=== PATIENT | male | born 1945 | race Caucasian/White ===

== ENCOUNTER 2021-02-24 14:02 | Inpatient (IN) | payer OTHER, MEDICARE ==
[~2021-02-24] VITALS: Ht 177.8 cm; Wt 57.2 kg
[2021-02-24] VITALS (7 sets, daily range): BP systolic 139–175; BP diastolic 58–94
[2021-02-24 15:19] LABS: BASOPHILS % (AUTO) 0.9 % (0-1); EOSINOPHILS % (AUTO) 0.7 % (0-6); LYMPHOCYTES # (AUTO) 0.8 X10'3 (1.1-4.8); LYMPHOCYTES % (AUTO) 14.3 % (21-51); MEAN CORPUSCULAR HEMOGLOBIN 32.3 PG (27.0-31.0); MEAN CORPUSCULAR HGB CONC 34.4 g/dL (33.0-36.5); MONOCYTES # (AUTO) 0.8 X10'3 (0-0.9); MONOCYTES % (AUTO) 13.1 % (2-12); NEUTROPHILS # (AUTO) 4.1 X10'3 (1.8-7.7); PLATELET COUNT 186 X10'3 (140-440); RED CELL DISTRIBUTION WIDTH 15.9 % (11.5-14.5); WHITE BLOOD COUNT 5.8 X10'3 (4.5-11.0)
[2021-02-24 15:25] LABS: HEMATOCRIT 17.9 % (42.0-52.0); HEMOGLOBIN 6.1 g/dl (14.0-17.9)
[2021-02-24 15:29] LABS: ALANINE AMINOTRANSFERASE 17 U/L (12-78); ALBUMIN 3.1 G/DL (3.4-5.0); ALBUMIN/GLOBULIN RATIO 0.8 (1.1-1.5); ALKALINE PHOSPHATASE 164 IU/L (46-116); ANION GAP 13 (8-16); ASPARTATE AMINO TRANSFERASE 23 U/L (10-37); BILIRUBIN,TOTAL 0.3 MG/DL (0.1-1.0); BLOOD UREA NITROGEN 53 MG/DL (7-18); BUN/CREATININE RATIO 8.2 (5.4-32.0); CALCIUM 8.4 MG/DL (8.5-10.1); CHLORIDE 100 MMOL/L (99-107); CREATININE 6.48 MG/DL (0.60-1.10); GLUCOSE 103 MG/DL (70-104); POTASSIUM 3.9 MMOL/L (3.5-5.1); SODIUM 139 MMOL/L (135-145); TOTAL CARBON DIOXIDE 26.1 MMOL/L (24-32); TOTAL PROTEIN 6.8 G/DL (6.4-8.2); eGFR 8 ML/MIN
[2021-02-24] MEDS ORDERED: METO-539 PO (17:10)
[2021-02-24] MEDS ORDERED: BUPR100T5 PO (17:10)
[2021-02-24] MEDS ORDERED: ASPI81TA47 PO (17:10)
[2021-02-24] MEDS ORDERED: CLOP75TA15 PO (17:10)
[2021-02-24] MEDS ORDERED: AMLO10TA48 PO (17:10)
[2021-02-24] MEDS ORDERED: TRAZ-251 PO (17:10)
[2021-02-24] MEDS ORDERED: ATOR40TA71 PO (17:10)
[2021-02-24] MEDS ORDERED: potassium CL 10mEq/100ml bag 100 ML IV PRN (17:35)
[2021-02-24] MEDS ORDERED: ondansetron/PF 4mg/2ml inj IV PRN (17:35)
[2021-02-24] MEDS ORDERED: acetaminophen 325mg tablet PO PRN ×2 (17:35)
[2021-02-24] MEDS ORDERED: potassium Cl 20 mEq SR tablet PO PRN ×2 (17:35)
[2021-02-24] MEDS ORDERED: normal saline 1000ml 1,000 ML IV SCH (17:35)
[2021-02-24] MEDS ORDERED: magnesium Cl slow-release 64mg tablet PO PRN (17:35)
[2021-02-24] MEDS ORDERED: magnesium 2GM in 50ml NS 50 ML IV PRN (17:35)
[2021-02-24] MEDS ORDERED: magnesium 4gm in 100ml NS 100 ML IV PRN (17:35)
--- NOTE | 2021-02-24 19:29 | NUR ---
assumed care of patient 1829. 1929 prbc unit completed. will contact CT for scan. patietn ate dinner and denies c/o pain. aox4 rendon
[2021-02-24] MEDS: K and/or MAG REPLACEMENT MC SCH (20:08)
[2021-02-24] MEDS: buPROPion SR 100mg tab PO SCH (20:08)
[2021-02-24] MEDS: pantoprazole 40MG/NS 100ML BAG 100 ML IV SCH (20:13)
[2021-02-24] MEDS ORDERED: temazepam 15mg capsule PO PRN (21:00)
[2021-02-24] MEDS: traZODone 50mg tablet PO SCH (21:05)
--- NOTE | 2021-02-24 23:00 | NUR ---
Report given by Clarence from ED at the 3rd floor nurses station
--- NOTE | 2021-02-24 23:15 | NUR ---
Mr Gallagher is being admitted to room 3027B. He has been assessed as indicated. He denied pain. He states he came to the ED after receiving a call from his HD physician stating there was a need for a blood transfusion related to low HH. Upon arrival HH was noted to be 6.1 and 17.9. He had AAA repair on 02/01/21. during this procedure he also had stent to the R kidney placed. He also states that he has limited renal function to the Left kidney also. Mr Gallagher contributes his renal failure to IV contrast dye. He started HD in the hospital. 02/23/21 was his second HD session in the community. He goes to [facility] here in [place] on [facility] [phone]. He lives [place] in [facility]. There are no open sessions in the HD center closer to his home. He uses a Right chest port for HD access. His routine HD days are TTS. His and sister in law are staying in a near by [place]. She can be reached at [phone] Mr Gallagher is very concerned with being DC. He has HD at 1330 Feb He is presently resting quietly.
[2021-02-25] VITALS (12 sets, daily range): BP systolic 124–163; BP diastolic 62–98
[2021-02-25] MEDS: pantoprazole 40MG/NS 100ML BAG 100 ML IV SCH ×5 (01:54→20:27)
--- NOTE | 2021-02-25 06:18 | NUR ---
Handoff has been given to Varsha SHEA
[2021-02-25 07:08] LABS: BASOPHILS # (AUTO) 0.1 X10'3 (0-0.2); BASOPHILS % (AUTO) 1.1 % (0-1); EOSINOPHILS # (AUTO) 0.1 X10'3 (0-0.9); EOSINOPHILS % (AUTO) 1.7 % (0-6); HEMATOCRIT 22.7 % (42.0-52.0); HEMOGLOBIN 7.9 g/dl (14.0-17.9); LYMPHOCYTES # (AUTO) 0.8 X10'3 (1.1-4.8); LYMPHOCYTES % (AUTO) 17.5 % (21-51); MEAN CORPUSCULAR HEMOGLOBIN 31.2 PG (27.0-31.0); MEAN CORPUSCULAR HGB CONC 34.8 g/dL (33.0-36.5); MEAN CORPUSCULAR VOLUME 89.7 FL (78-98); MEAN PLATELET VOLUME 6.9 FL (7.4-10.4); MONOCYTES # (AUTO) 0.6 X10'3 (0-0.9); MONOCYTES % (AUTO) 13.3 % (2-12); NEUTROPHILS # (AUTO) 3.1 X10'3 (1.8-7.7); NEUTROPHILS % (AUTO) 66.4 % (42-75); PLATELET COUNT 140 X10'3 (140-440); RED BLOOD COUNT 2.53 X10'6 (4.70-6.10); RED CELL DISTRIBUTION WIDTH 17.9 % (11.5-14.5); WHITE BLOOD COUNT 4.7 X10'3 (4.5-11.0)
[2021-02-25] MEDS: metoprolol succinate 25mg (24-HOUR) SR. Tablet PO SCH (07:08)
[2021-02-25] MEDS: amLODIPine 5mg tablet PO SCH (07:09)
[2021-02-25] MEDS: atorvastatin 20mg tablet PO SCH (07:10)
[2021-02-25] MEDS: buPROPion SR 100mg tab PO SCH ×2 (07:11→20:14)
[2021-02-25 07:26] LABS: ALANINE AMINOTRANSFERASE 13 U/L (12-78); ALBUMIN 2.8 G/DL (3.4-5.0); ALBUMIN/GLOBULIN RATIO 0.8 (1.1-1.5); ALKALINE PHOSPHATASE 144 IU/L (46-116); ANION GAP 11 (8-16); ASPARTATE AMINO TRANSFERASE 22 U/L (10-37); BILIRUBIN,TOTAL 0.5 MG/DL (0.1-1.0); BLOOD UREA NITROGEN 60 MG/DL (7-18); BUN/CREATININE RATIO 8.8 (5.4-32.0); CALCIUM 8.1 MG/DL (8.5-10.1); CHLORIDE 104 MMOL/L (99-107); CREATININE 6.78 MG/DL (0.60-1.10); GLUCOSE 91 MG/DL (70-104); POTASSIUM 4.1 MMOL/L (3.5-5.1); SODIUM 139 MMOL/L (135-145); TOTAL CARBON DIOXIDE 23.9 MMOL/L (24-32); TOTAL PROTEIN 6.3 G/DL (6.4-8.2); eGFR 8 ML/MIN
[2021-02-25 07:45] LABS: % IRON SATURATION 65 % (11-46); IRON 145 UG/DL (53-167); TOTAL IRON BINDING CAPACITY 224 UG/DL (259-388)
[2021-02-25] MEDS: K and/or MAG REPLACEMENT MC SCH ×2 (08:00→19:14)
--- NOTE | 2021-02-25 10:24 | NUR ---
Pulse oximetery is 96% on while [facility]
[2021-02-25] MEDS ORDERED: MIDAZolam 1 MG/ML 5ML VIAL ONE (10:25)
[2021-02-25] MEDS ORDERED: fentaNYL/PF 50MCG/1 ML 2ML syringe ONE (10:25)
[2021-02-25] MEDS ORDERED: LIDOcaine Viscous 15ml cup ONE (10:26)
[2021-02-25] MEDS ORDERED: normal saline 1000ml 100 ML IV PRN (12:05)
[2021-02-25] MEDS ORDERED: normal saline 1000ml 250 ML IV PRN (12:05)
[2021-02-25] MEDS ORDERED: EPOETIN ALFA-EPBX 20,000 UNIT/ML 1 ML MDV IV ONE (12:05)
[2021-02-25] MEDS ORDERED: heparin 1,000 units/ml 10ml inj HE ONE ×2 (12:05)
--- NOTE | 2021-02-25 12:48 | NUR ---
Malnutrition consult: Pt reports 2-13 lb wt loss with decreased appetite per malnutrition risk screen with RN. Pt newly on HD per consult. Per sales representative [employer] pt started on dialysis 02/23 and goes to [facility], likely sees an RD at outpatient clinic. Pt currently with a low BMI however current documented wt isn't scaled, though pt likely to experience some changes in weight r/t fluid status. Pt on a renal heart healthy diet and eating well with 100% PO intake first meal. No documented edema or wounds. Pt currently lacks a minimum of two criteria for malnutrition. Will continue to follow. Addendum: 02/25/21 at [address] Amended: Links added.
[2021-02-25 16:17] LABS: BASOPHILS % (AUTO) 0.8 % (0-1); EOSINOPHILS % (AUTO) 1.2 % (0-6); HEMATOCRIT 24.2 % (42.0-52.0); HEMOGLOBIN 8.4 g/dl (14.0-17.9); LYMPHOCYTES # (AUTO) 0.6 X10'3 (1.1-4.8); LYMPHOCYTES % (AUTO) 15.3 % (21-51); MEAN CORPUSCULAR HEMOGLOBIN 31.2 PG (27.0-31.0); MEAN CORPUSCULAR HGB CONC 34.7 g/dL (33.0-36.5); MEAN CORPUSCULAR VOLUME 90.1 FL (78-98); MEAN PLATELET VOLUME 7.1 FL (7.4-10.4); MONOCYTES # (AUTO) 0.5 X10'3 (0-0.9); MONOCYTES % (AUTO) 12.5 % (2-12); NEUTROPHILS # (AUTO) 2.8 X10'3 (1.8-7.7); NEUTROPHILS % (AUTO) 70.2 % (42-75); PLATELET COUNT 137 X10'3 (140-440); RED BLOOD COUNT 2.69 X10'6 (4.70-6.10); RED CELL DISTRIBUTION WIDTH 17.6 % (11.5-14.5); WHITE BLOOD COUNT 4.1 X10'3 (4.5-11.0)
--- NOTE | 2021-02-25 18:14 | NUR ---
Problems reprioritized. Patient report given to RN Corrie, questions answered & plan of care reviewed with Corrie RN.
[2021-02-25] MEDS ORDERED: PEG 3350/Na sulf,bicarb,Cl/KCl oral sol 4 liter bottle PO ONE (20:00)
[2021-02-25] MEDS: traZODone 50mg tablet PO SCH (20:16)
[2021-02-26] VITALS (7 sets, daily range): BP systolic 142–159; BP diastolic 77–91
[2021-02-26] MEDS: pantoprazole 40MG/NS 100ML BAG 100 ML IV SCH ×3 (01:00→11:00)
[2021-02-26] MEDS: metoprolol succinate 25mg (24-HOUR) SR. Tablet PO SCH (07:11)
[2021-02-26] MEDS: atorvastatin 20mg tablet PO SCH (07:12)
[2021-02-26] MEDS: amLODIPine 5mg tablet PO SCH (07:12)
[2021-02-26] MEDS: buPROPion SR 100mg tab PO SCH (07:12)
[2021-02-26 07:33] LABS: BASOPHILS % (AUTO) 0.9 % (0-1); EOSINOPHILS % (AUTO) 0.9 % (0-6); HEMOGLOBIN 8.1 g/dl (14.0-17.9); LYMPHOCYTES # (AUTO) 0.8 X10'3 (1.1-4.8); MEAN CORPUSCULAR HEMOGLOBIN 31.7 PG (27.0-31.0); MEAN CORPUSCULAR HGB CONC 35.2 g/dL (33.0-36.5); MEAN CORPUSCULAR VOLUME 90.3 FL (78-98); MEAN PLATELET VOLUME 6.9 FL (7.4-10.4); MONOCYTES # (AUTO) 0.6 X10'3 (0-0.9); MONOCYTES % (AUTO) 15.2 % (2-12); NEUTROPHILS # (AUTO) 2.4 X10'3 (1.8-7.7); PLATELET COUNT 136 X10'3 (140-440); RED BLOOD COUNT 2.55 X10'6 (4.70-6.10); RED CELL DISTRIBUTION WIDTH 17.3 % (11.5-14.5); WHITE BLOOD COUNT 3.9 X10'3 (4.5-11.0)
[2021-02-26 07:59] LABS: ALANINE AMINOTRANSFERASE 12 U/L (12-78); ALBUMIN 2.7 G/DL (3.4-5.0); ALBUMIN/GLOBULIN RATIO 0.8 (1.1-1.5); ALKALINE PHOSPHATASE 140 IU/L (46-116); ANION GAP 11 (8-16); ASPARTATE AMINO TRANSFERASE 24 U/L (10-37); BILIRUBIN,TOTAL 0.4 MG/DL (0.1-1.0); BLOOD UREA NITROGEN 24 MG/DL (7-18); CALCIUM 7.9 MG/DL (8.5-10.1); CHLORIDE 104 MMOL/L (99-107); CREATININE 3.98 MG/DL (0.60-1.10); GLUCOSE 103 MG/DL (70-104); POTASSIUM 3.6 MMOL/L (3.5-5.1); SODIUM 143 MMOL/L (135-145); TOTAL CARBON DIOXIDE 27.8 MMOL/L (24-32); TOTAL PROTEIN 6.2 G/DL (6.4-8.2); eGFR 15 ML/MIN
[2021-02-26] MEDS: K and/or MAG REPLACEMENT MC SCH (08:00)
[2021-02-26] MEDS ORDERED: MIDAZolam 1 MG/ML 5ML VIAL ONE (10:50)
[2021-02-26] MEDS ORDERED: fentaNYL/PF 50MCG/1 ML 2ML syringe ONE (10:50)
--- NOTE | 2021-02-26 13:08 | NUR ---
PAGER ID: [phone] MESSAGE: [email or web address], [phone] IS BACK FROM LAB. THANK YOU.
--- NOTE | 2021-02-26 14:00 | NUR ---
Refusal Pt. refusing to wear telemetry and be hooked up to IV protonix after education of importance. Pt. states he'd like to talk to Doctor Marmolejo in regards to getting discharged; Dr. Marmolejo paged and notified. [facility]
--- NOTE | 2021-02-26 15:01 | NUR ---
Pt. refusal. PAGER ID: [phone] MESSAGE: Dr. Marmolejo sorry to bother you. Pt. in room 9921M [place], Pawel is agitated and wants to speak to a physician in regards to the plan of care or else he states he's leaving. Thanks, Varsha Click [facility]
[2021-02-26] MEDS ORDERED: PANT20TA18 PO (15:11)
--- NOTE | 2021-02-26 16:28 | NUR ---
Pt. received discharge instructions with no further questions; IV removed with catheter intact; Tele cleaned and returned; Pt received [facility] on weekends. Pt. ready for discharge per Dr. Marmolejo.
[2021-02-28 15:30] LABS: HBSAG SCREEN Negative (Negative)
== END 2021-02-26 16:28 | disposition home or self-care (01) | DRG 811 ==
LOC: ER 14:04 → ED HOLD 17:39 → EDBEDREQ 23:10 → PCU 3S 23:37
PROVIDERS: ADMIT Internal Medicine; ATTEND Internal Medicine
PROC: 30233N1 Transfusion of Nonautologous Red Blood Cells into Peripheral Vein, Percutaneous Approach (ICD-10-PCS; 2021-02-24)
PROC: 0DB98ZX Excision of Duodenum, Via Natural or Artificial Opening Endoscopic, Diagnostic (ICD-10-PCS; principal; 2021-02-25)
PROC: 0DB68ZX Excision of Stomach, Via Natural or Artificial Opening Endoscopic, Diagnostic (ICD-10-PCS; 2021-02-25)
PROC: 5A1D70Z Performance of Urinary Filtration, Intermittent, Less than 6 Hours Per Day (ICD-10-PCS; 2021-02-25)
PROC: 0DBL8ZZ Excision of Transverse Colon, Via Natural or Artificial Opening Endoscopic (ICD-10-PCS; 2021-02-26)
PROC: 0DBN8ZX Excision of Sigmoid Colon, Via Natural or Artificial Opening Endoscopic, Diagnostic (ICD-10-PCS; 2021-02-26)
DX: D50.0 Iron deficiency anemia secondary to blood loss (chronic) (principal); N18.6 End stage renal disease; N17.9 Acute kidney failure, unspecified; K63.3 Ulcer of intestine; R19.5 Other fecal abnormalities; K29.70 Gastritis, unspecified, without bleeding; K64.8 Other hemorrhoids; K63.5 Polyp of colon; F12.90 Cannabis use, unspecified, uncomplicated; I25.2 Old myocardial infarction; Z99.2 Dependence on renal dialysis; Z88.5 Allergy status to narcotic agent; Z91.041 Radiographic dye allergy status; Z79.899 Other long term (current) drug therapy
CPT/HCPCS: 36415; 36430; 43239; 45380; 45385; 71045; 74176; 80053; 83520; 83540; 83550; 85025; 85610; 86885; 86900; 86901; 86920; 87081; 87340; 93005; 99152; 99153; 99285; A4620; C1773; C9113; G0378; J1644; J2250; J2405; J3010; J7030; J7040; P9016; Q4081